=== PATIENT | male | born 1955 | race Caucasian/White ===

== ENCOUNTER 2017-07-26 16:19 | Observation (INO) | payer BC ==
[~2017-07-26] VITALS: Ht 177.8 cm; Wt 101.6 kg
[~2017-07-26 16:19] MED LIST: ADULT LOW DOSE81 M1 PO; AMLODIPINE BESYL5 MG PO; ASPIR-LOW81 MG PO; AZOR 5/20 MG1 TABLET PO; CELEBREX200 MG PO; FLONASE16 G1 BOTH NARES; HYDROCHLOROTHIA25 MG PO; K-SOL20 MEQ/15 PO; KEFLEX500 MG PO; METFORMIN HCL1000 MG PO; NORCO 5/3251 TABLET PO; OMEPRAZOLE20 M2 PO; PERCOCET 5/31 TABLET PO; PROCHLORPERAZIN10 MG PO; RAMIPRIL10 MG PO; SIMVASTATIN40 MG PO; THORAZINE25 MG PO; TOPROL XL100 MG PO; TRAMADOL HCL50 MG PO; VICODIN,LORT1 TABLET PO; XARELTO15 MG PO; ZOFRAN8 MG PO; [UNRECOGNIZED DRUG - SUPPLY] TP
[2017-07-26 18:02] LABS: HEMATOCRIT 37.8 % (38.0-50.0); MCH 28.8 PG (29.0-34.0); MCHC 33.3 G/DL (30.0-36.0); MCV 86.5 FL (86-99); MEAN PLAT.VOLUME 10.3 uM^3 (9.0-12.4); PLATELET COUNT 137 K/uL (156-360); RBC DIS.WIDTH-CV 12.4 % (11.8-14.6); RBC DIS.WIDTH-SD 39.7 % (39-53); RED BLOOD COUNT 4.37 M/uL (4.00-5.50); WHITE BLOOD COUNT 7.2 K/uL (4.1-10.2)
[2017-07-26 18:13] LABS: CHLORIDE 104 mEq/L (99-109); POTASSIUM 5.8 mEq/L (3.7-5.4); SODIUM 139 mEq/L (136-147)
[2017-07-26 18:15] LABS: GLUCOSE 116 mg/dL (70-99)
[2017-07-26 18:16] LABS: ANION GAP 10 MEQ/L (2-14)
[2017-07-26 18:19] LABS: GFR ESTIMATE (CALCULATED) 54 mL/min/
[2017-07-26 18:20] LABS: UREA NITROGEN (BUN) 19 mg/dL (9-23)
[2017-07-26 18:23] LABS: TROP-I INTERPRETATION NEGATIVE; TROPONIN-I < 0.01 ng/mL (0.0-0.30)
[2017-07-26 18:26] LABS: D-DIMER ELISA < 150.00 ng/mLDDU (<230)
[2017-07-26 21:03] LABS: CHLORIDE 105 mEq/L (99-109); SODIUM 139 mEq/L (136-147)
[2017-07-26 21:05] LABS: GLUCOSE 103 mg/dL (70-99)
[2017-07-26 21:06] LABS: ANION GAP 9 MEQ/L (2-14); POTASSIUM 3.8 mEq/L (3.7-5.4)
[2017-07-26 21:07] LABS: TOTAL BILIRUBIN 0.3 mg/dL (0.0-1.0)
[2017-07-26 21:09] LABS: ALKALINE PHOSPHATASE 46 IU/L (3-129); GFR ESTIMATE (CALCULATED) > 59 mL/min/
[2017-07-26 21:10] LABS: UREA NITROGEN (BUN) 17 mg/dL (9-23)
[2017-07-27 02:31] VITALS: BP 136/69
[2017-07-27 06:41] LABS: POINT-OF-CARE METER ID UU14208750
[2017-07-27 07:29] VITALS: BP 141/70
[2017-07-27 11:21] VITALS: BP 143/77
[2017-07-27 11:31] LABS: POINT-OF-CARE METER ID UU14208750
[2017-07-27 12:55] LABS: METH RESISTANT S AUREUS PCR NEGATIVE (NEGATIVE); PROBE CHECK PASS; SPECIMEN PROCESSING CONTROL PASS
[2017-07-27 15:50] VITALS: BP 143/72
[2017-07-27 16:00] LABS: POINT-OF-CARE METER ID UU14208750
[2017-07-27] MEDS ORDERED: PERCOCET 5/31 TABLET PO (19:06)
[2017-07-27] MEDS ORDERED: COLACE100 MG PO (19:06)
[2017-07-27 19:30] LABS: POINT-OF-CARE METER ID UU13113675
[2017-07-27 20:32] VITALS: BP 156/71
[2017-07-27 22:09] LABS: POINT-OF-CARE METER ID UU14162508
[2017-07-27 23:34] VITALS: BP 135/70
[2017-07-28 03:50] VITALS: BP 131/70
[2017-07-28 06:25] LABS: POINT-OF-CARE METER ID UU14162508
[2017-07-28 07:45] VITALS: BP 123/65
[2017-07-28 08:50] VITALS: BP 120/64
[2017-07-28 12:15] LABS: POINT-OF-CARE METER ID UU14208750
[2017-07-28] MEDS ORDERED: OXYCODONE H5 MG/5 ML PO (13:06)
== END 2017-07-28 13:52 | disposition home or self-care (01) ==
LOC: EME 16:19 → EDOF 07-27 00:38 → 2EAST 07-27 00:38 → EDOF 07-27 00:38 → ENRESERV 07-27 00:41 → 2EAST 07-27 02:14
PROVIDERS: Emergency Medicine; Surgery
PROC: 0FT44ZZ Resection of Gallbladder, Percutaneous Endoscopic Approach (ICD-10-PCS; principal; 2017-07-27)
DX: K80.12 Calculus of gallbladder with acute and chronic cholecystitis without obstruction (principal); R00.1 Bradycardia, unspecified; Z86.711 Personal history of pulmonary embolism; R06.4 Hyperventilation; K76.89 Other specified diseases of liver; E11.9 Type 2 diabetes mellitus without complications; E78.5 Hyperlipidemia, unspecified; I10 Essential (primary) hypertension; K21.9 Gastro-esophageal reflux disease without esophagitis; Z85.818 Personal history of malignant neoplasm of other sites of lip, oral cavity, and pharynx; Z96.643 Presence of artificial hip joint, bilateral; Z96.651 Presence of right artificial knee joint; Z79.84 Long term (current) use of oral hypoglycemic drugs; Z79.82 Long term (current) use of aspirin; Z87.891 Personal history of nicotine dependence
CPT/HCPCS: 71275; 74177; 76705; 80048; 80053; 82948; 84484; 85027; 85379; 87641; 88304; 93005; 94799; 99281; 99285; C9113; G0378; J0295; J0744; J1170; J1650; J1815; J2250; J2270; J2710; J2765; J3010; J7050; S0030